=== PATIENT | male | born 1990 | race Two or more races ===

== ENCOUNTER 2018-04-16 14:45 | Inpatient (IN) | payer BC ==
[~2018-04-16] VITALS: Ht 177.8 cm; Wt 97.3 kg
[~2018-04-16 14:45] MED LIST: DEXAMETHASONE 4 MG/ML, 1ML ONE; KETOROLAC 30 MG/1 ML ONE; ONDANSETRON 2MG/ML, 2ML ONE; PROPOFOL 10 MG/ML, 20ML ONE; PROPOFOL 10 MG/ML, 50ML ONE
[2018-04-16] MEDS ORDERED: ONDANSETRON 2MG/ML, 2ML ONE (15:24)
[2018-04-16] MEDS ORDERED: ONDANSETRON 2MG/ML, 2ML IVPush ONE (15:30)
[2018-04-16] MEDS ORDERED: SODIUM CHLORIDE FLUSH 10ML SYR IVF ONE (15:30)
[2018-04-16 15:44] LABS: BASOPHILS # (AUTO) 0.04 x10^3/uL (0-0.1); BASOPHILS % (AUTO) 0 % (0-1); EOSINOPHILS % (AUTO) 0 % (1-7); LYMPHOCYTES # (AUTO) 1.29 x10^3/uL (1-3.4); LYMPHOCYTES % (AUTO) 10 % (22-44); MD NO; MEAN CORPUSCULAR HGB CONC 34.1 g/dL (33.2-36.2); MEAN PLATELET VOLUME 8.9 fL (7.4-10.4); MONOCYTES # (AUTO) 0.75 x10^3/uL (0.2-0.8); MONOCYTES % (AUTO) 6 % (2-9); NEUTROPHILS # (AUTO) 11.26 x10^3/uL (1.8-6.8); NEUTROPHILS % (AUTO) 84 % (42-75); PLATELET COUNT 247 x10^3/uL (130-400); RED CELL DISTRIBUTION WIDTH 13.3 % (9.4-14.8)
[2018-04-16 15:54] LABS: ALBUMIN 4.4 g/dL (3.4-5.0); ANION GAP 10 mmol/L (5-15); CALCIUM 9.3 mg/dL (8.5-10.1); CHLORIDE 100 mmol/L (98-107)
[2018-04-16] MEDS ORDERED: morphine SULFATE 10 MG/ML, 1ML ONE (15:55)
[2018-04-16 15:57] LABS: ALANINE AMINOTRANSFERASE 22 U/L (12-78); ALKALINE PHOSPHATASE 73 U/L (45-117); BILIRUBIN,TOTAL 1.2 mg/dL (0.2-1.0); CREATININE 1.16 mg/dL (0.7-1.3); TOTAL PROTEIN 8.5 g/dL (6.4-8.2)
[2018-04-16] MEDS ORDERED: morphine SULFATE 10 MG/ML, 1ML IVPush ONE (16:00)
[2018-04-16] MEDS ORDERED: CEFOTETAN PMX 1GM/50ML 50 ML ONE (16:42)
[2018-04-16] MEDS ORDERED: CEFOTETAN PMX 1GM/50ML 50 ML IV ONE (17:00)
[2018-04-16] MEDS ORDERED: PROPOFOL 50 ML ONE (17:13)
[2018-04-16] MEDS ORDERED: MIDAZOLAM 1 MG/ML, 2ML ONE (17:13)
[2018-04-16] MEDS ORDERED: FENTANYL PF 250 MCG/5ML ONE (17:13)
[2018-04-16] MEDS ORDERED: EPINEPHRINE 1 MG/ML, 1ML ONE (17:41)
[2018-04-16] MEDS ORDERED: BUPIVACAINE/PF 0.5% ONE (17:41)
[2018-04-16] MEDS ORDERED: BUPIVACAINE/PF-EPI 0.5% 1:200K INFIL ONE (17:45)
[2018-04-16] MEDS ORDERED: DIPHENHYDRAMINE 50 MG/ML, 1ML IVPush PRN (18:00)
[2018-04-16] MEDS ORDERED: PROMETHAZINE 25 MG/ML, 1ML IV PRN (18:00)
[2018-04-16] MEDS ORDERED: PROMETHAZINE 12.5 MG SUPP PR PRN (18:00)
[2018-04-16] MEDS ORDERED: FENTANYL PF 100 MCG/2ML IV PRN (18:00)
[2018-04-16] MEDS ORDERED: PROMETHAZINE 25 MG SUPP PR PRN (18:00)
[2018-04-16] MEDS ORDERED: LABETALOL 5MG/ML, 20ML IV PRN (18:00)
[2018-04-16] MEDS ORDERED: MEPERIDINE/PF 25MG/0.5ML IVPush PRN (18:00)
[2018-04-16] MEDS ORDERED: EPHEDRINE 50 MG/ML, 1ML IVPush PRN (18:00)
[2018-04-16] MEDS ORDERED: PROCHLORPERAZINE 5 MG/ML, 2ML IV PRN (18:00)
[2018-04-16] MEDS ORDERED: MORPHINE SULFATE 4 MG/ML, 1ML IVPush PRN (18:00)
[2018-04-16] MEDS ORDERED: OXYcodone 5 MG/5 ML ORAL.SOL UDC PO PRN (18:00)
[2018-04-16] MEDS ORDERED: ONDANSETRON ODT 8 MG PO PRN (18:00)
[2018-04-16] MEDS ORDERED: ONDANSETRON 2MG/ML, 2ML IV PRN ×2 (18:00→21:00)
[2018-04-16] MEDS ORDERED: EPHEDRINE 50 MG/ML, 1ML IM PRN (18:00)
[2018-04-16] MEDS ORDERED: MIDAZOLAM 1 MG/ML, 2ML IV PRN (18:00)
[2018-04-16] MEDS ORDERED: OXYcodone 5 MG/5 ML ORAL.SOL UDC ONE (19:11)
[2018-04-16 20:00] VITALS: BP 106/61
[2018-04-16] MEDS ORDERED: OXYC-302 PO (20:32)
[2018-04-16] MEDS ORDERED: AMOX1TAB64 PO (20:35)
[2018-04-16] MEDS ORDERED: POLY17PO5 PO (20:36)
[2018-04-16] MEDS ORDERED: MORPHINE SULFATE 4 MG/ML, 1ML IV PRN (21:00)
[2018-04-16] MEDS ORDERED: LACTATED RINGERS 1,000 ML IV SCH (21:00)
[2018-04-16] MEDS ORDERED: AMOXICILLIN/CLAV 875-125MG TABLET PO SCH (21:00)
[2018-04-16] MEDS ORDERED: OXYcodone/APAP 5/325MG TABLET PO PRN (21:00)
== END 2018-04-16 22:10 | disposition home or self-care (01) | DRG 342 ==
LOC: ED 16:26 → EDIP 16:37 → 4NOR 19:50
PROVIDERS: ADMIT Colon & Rectal Surgery; ATTEND Colon & Rectal Surgery
PROC: 0DTJ4ZZ Resection of Appendix, Percutaneous Endoscopic Approach (ICD-10-PCS; principal; 2018-04-16 17:15)
DX: K35.30 Acute appendicitis with localized peritonitis, without perforation or gangrene (principal); R18.8 Other ascites
CPT/HCPCS: 36415; 74022; 80053; 83690; 85025; 88304; 96374; 96375; 99285; G0378; J0171; J1100; J1885; J2250; J2405; J2704; J3010; J3490; J2270

== ENCOUNTER 2018-04-18 15:00 | Emergency (ER) | payer BC ==
[~2018-04-18] VITALS: Ht 177.8 cm; Wt 87.9 kg
[~2018-04-18 15:00] MED LIST changes: +AMOX1TAB64 PO; -DEXAMETHASONE 4 MG/ML, 1ML ONE; -KETOROLAC 30 MG/1 ML ONE; -ONDANSETRON 2MG/ML, 2ML ONE; +OXYC-302 PO; +POLY17PO5 PO; -PROPOFOL 10 MG/ML, 20ML ONE; -PROPOFOL 10 MG/ML, 50ML ONE
[2018-04-18] MEDS ORDERED: ACETAMINOPHEN 500 MG TABLET ONE (15:09)
[2018-04-18] MEDS ORDERED: ACETAMINOPHEN 500 MG TABLET PO ONE (15:30)
[2018-04-18 15:40] LABS: RAPID INFLUENZA A Negative (Negative); RAPID INFLUENZA B Negative (Negative)
[2018-04-18 15:50] LABS: ALANINE AMINOTRANSFERASE 35 U/L (12-78); ALBUMIN 3.5 g/dL (3.4-5.0); ANION GAP 8 mmol/L (5-15); CALCIUM 8.5 mg/dL (8.5-10.1); CHLORIDE 101 mmol/L (98-107); CREATININE 1.11 mg/dL (0.7-1.3)
[2018-04-18 15:52] LABS: ALKALINE PHOSPHATASE 62 U/L (45-117); BILIRUBIN,TOTAL 0.7 mg/dL (0.2-1.0); TOTAL PROTEIN 7.9 g/dL (6.4-8.2)
[2018-04-18 16:04] LABS: MEAN CORPUSCULAR HGB CONC 34.3 g/dL (33.2-36.2); MEAN CORPUSCULAR VOLUME 87.5 fL (81-97); PLATELET COUNT 217 x10^3/uL (130-400); RED BLOOD COUNT 4.23 x10^6/uL (4.38-5.82); RED CELL DISTRIBUTION WIDTH 13.2 % (9.4-14.8)
[2018-04-18] MEDS ORDERED: OMNIPAQUE 350 MG/ML, 100ML BOTTLE ONE ×2 (16:13→19:15)
[2018-04-18 16:35] LABS: MICROSCOPIC AUTO
[2018-04-18 16:38] LABS: CULTURE INDICATED? NO
[2018-04-18 16:45] LABS: MD YES
[2018-04-18 16:49] LABS: BANDS%(MANUAL) 6 % (0-7); EOS#(MANUAL) 0.12 x10^3/uL (0.0-0.4); EOS% (MANUAL) 1 % (1-7); LYMPH#(MANUAL) 1.52 x10^3/uL (1-3.4); LYMPHS% (MANUAL) 13 % (22-44); MONOS% (MANUAL) 6 % (2-9); SEG#(MANUAL) 8.66 x10^3/uL (1.8-6.8); SEGS% (MANUAL) 74 % (42-75)
[2018-04-18 16:50] LABS: <PLATELET ESTIMATE> ADEQUATE; <PLT MORPHOLOGY> NORMAL PLT MORPH; <RBC MORPHOLOGY> NORMAL
[2018-04-18] MEDS ORDERED: SODIUM CHLORIDE 0.9% 1,000ML IVBOLUS ONE (17:00)
[2018-04-18 17:09] VITALS: BP 106/62
== END 2018-04-18 19:09 | disposition home or self-care (01) ==
LOC: ED 16:24
DX: R50.9 Fever, unspecified (principal); R19.7 Diarrhea, unspecified; Z90.89 Acquired absence of other organs
CPT/HCPCS: 36415; 71045; 71275; 74177; 80053; 81001; 83605; 85025; 87040; 87400; 96360; 99284; J7030; Q9967